=== PATIENT | female | born 1960 | race Caucasian/White ===

== ENCOUNTER 2024-04-03 08:54 | Observation (INO) ==
--- NOTE | 2024-02-15 11:21 | PAT Medication Instructions ---
Medication Instructions Date of Service February 15, 2024 Home Medications albuterol sulfate 90 mcg/actuation aerosol inhaler 1 inh inhalation UD PRN ALLERGIES atorvastatin 20 mg tablet (Lipitor) 20 mg PO QPM clobetasol 0.05 % topical cream 1 applic topical UD PRN PSORIASIS diclofenac sodium 75 mg tablet,delayed release 75 mg PO BID famotidine 40 mg tablet 40 mg PO QPM furosemide 20 mg tablet 20 mg PO UD PRN LEG SWELLING loratadine 10 mg tablet (Claritin) 10 mg PO UD PRN ALLERGIES metformin 500 mg tablet 500 mg PO BID pre-diabetes potassium chloride 20 mEq tablet,extended release(part/cryst) (Klor-Con M) 20 meq PO QAM tramadol 50 mg tablet 50 mg PO UD PRN Pain triamterene 37.5 mg-hydrochlorothiazide 25 mg tablet 1 tab PO QAM cyanocobalamin (vitamin B-12) 1,000 mcg tablet (Vitamin B-12) 1,000 mcg PO QAM MEDICATION INSTRUCTIONS: Continue as directed albuterol sulfate 90 mcg/actuation aerosol inhaler 1 inh inhalation UD PRN ALLERGIES (use if needed; BRING TO HOSPITAL) clobetasol 0.05 % topical cream 1 applic topical UD PRN PSORIASIS (do not apply after bathing prior to surgery) ASK your surgeon for instructions diclofenac sodium 75 mg tablet,delayed release 75 mg PO BID DO NOT take the morning of surgery metformin 500 mg tablet 500 mg PO BID pre-diabetes triamterene 37.5 mg-hydrochlorothiazide 25 mg tablet 1 tab PO QAM potassium chloride 20 mEq tablet,extended release(part/cryst) (Klor-Con M) 20 meq PO QAM cyanocobalamin (vitamin B-12) 1,000 mcg tablet (Vitamin B-12) 1,000 mcg PO QAM Take morning of surgery With a small sip of water, OTHERWISE NOTHING TO EAT OR DRINK AFTER MIDNIGHT: tramadol 50 mg tablet 50 mg PO UD PRN Pain Take evening before surgery famotidine 40 mg tablet 40 mg PO QPM atorvastatin 20 mg tablet (Lipitor) 20 mg PO QPM metformin 500 mg tablet 500 mg PO BID pre-diabetes tramadol 50 mg tablet 50 mg PO UD PRN Pain Other Notes If you have any questions please call us at [phone] or [phone] or [phone] or [phone]
--- NOTE | 2024-02-28 11:03 | Anesthesiology Consultation ---
Date of Service February 28, 2024 Assessment & Plan (1) Encounter for pre-operative examination: Chart Review Chart Review: Acceptable Risk for Surgery and Patient seen in Pre Admission Testing - Check BSG AM DOS Pt currently scheduled as 23 hours observation. If surgeon decides to change patient to Same Day Joint, patient would be acceptable risk for TKA, pending patient is motivated, has good support and surgeon's office completes [facility] Program preop requirements. Per PAT appt on 02/28/24, no recent illness/disease exposures, illness related symptoms, or recent illness/disease positive tests. Will leave to surgeon's discretion if preop Covid testing needed Teaching & Discussion Pre-Anesthesia Teaching/Discussion Notes: Instructed NPO after midnight before surgery,except medications with 15 cc of water. Medication instructions provided according to the PAT guidelines. History Surgery Operation Date: 04/03/24 08:40 Proposed Procedures p Left Total Knee Arthroplasty - Pj Uribe, Height/Weight Height: 5 ft 5 in Weight: 117.1 kg Allergies Allergy/AdvReac Type Severity Reaction Status Date / Time No Known Drug Allergies Allergy Unknown NKDA Verified 02/15/24 08:09 pollen extracts Allergy Unknown WATERY Verified 02/15/24 08:09 EYES;SNEEZING Medications Home Medications Medication Instructions Recorded Confirmed Last Taken albuterol sulfate 90 mcg/actuation 1 inh inhalation UD PRN ALLERGIES 09/01/22 02/15/24 Unknown aerosol inhaler atorvastatin 20 mg tablet (Lipitor) 20 mg PO QPM 09/01/22 02/15/24 09/09/22 08:00 clobetasol 0.05 % topical cream 1 applic topical UD PRN PSORIASIS 09/01/22 1 Unknown diclofenac sodium 75 mg 75 mg PO BID 09/01/22 02/15/24 09/09/22 08:00 tablet,delayed release famotidine 40 mg tablet 40 mg PO QPM 09/01/22 02/15/24 09/09/22 08:00 furosemide 20 mg tablet 20 mg PO UD PRN LEG SWELLING 09/01/22 02/15/24 09/03/22 08:00 loratadine 10 mg tablet (Claritin) 10 mg PO UD PRN ALLERGIES 09/01/22 02/15/24 09/09/22 08:00 metformin 500 mg tablet 500 mg PO BID pre-diabetes 09/01/22 02/15/24 09/09/22 08:00 potassium chloride 20 mEq 20 meq PO QAM 09/01/22 02/15/24 09/09/22 08:00 tablet,extended release(part/cryst) (Klor-Con M) tramadol 50 mg tablet 50 mg PO UD PRN Pain 09/01/22 02/15/24 09/03/22 08:00 triamterene 37.5 1 tab PO QAM 09/01/22 02/15/24 09/09/22 08:00 mg-hydrochlorothiazide 25 mg tablet cyanocobalamin (vitamin B-12) 1,000 mcg PO QAM 02/15/24 02/15/24 Unknown 1,000 mcg tablet (Vitamin B-12) Past Medical History Medical History (Updated 02/28/24 @ 11:15 by Leilani Garber PA-C) Acid reflux well controlled and stable Arthritis High cholesterol HTN (hypertension) Numbness and tingling in both hands bilateral fingers- on Vit 12; patient feels neuropathy due to prediabetes Peripheral neuropathy bilateral feet Pre-diabetes Psoriasis Seasonal allergies Exercise / Class Metabolic Activity II 4-5 Yardwork/Stairs/Walk up hill (one flight of stairs- no chest pain or SOB ) Past Family History Family History Mother Leukemia Father Heart disease Brother Family history of cancer Other Family history of diabetes mellitus No family history of adverse response to anesthesia Past Surgical History Surgical History History of colonoscopy History of lumbar spinal fusion (2013) Dr Sebastian (unsure of levels) History of thoracic spinal fusion (2009) unsure of levels History of total right knee replacement (2014) Past Anesthesia History No Hx of Anesthesia Complications and No Family Hx of Anesthesia Complications History of PONV No Hx of PONV and No Hx of Motion Sickness Social History Smoking Status: Never smoker Do You Dip or Chew Tobacco: No Hx Alcohol Use: Yes Alcohol type: other alcohol intake frequency: holidays/special occasions only Hx Substance Use: No substance use type: does not use Review of Systems Patient denies chest pain, shortness of breath, dyspnea on exertion, cough, w heezing, palpitations. No hx of seizures, stroke, SC, apnea/snoring. No hx of blood clots or blood transfusions Physical Exam Vital Signs VITALS BP 147/71 P 67 TEMP 97.8 SP02 94% RESP 16 Constitutional no acute distress ENMT Mouth: no TMJ clicking Thyromental Distance: > or= 3.5 Finger Breadths (3.5) Mallampati Class: III Upper partial denture Neck neck extension not limited Respiratory normal respiratory effort; no respiratory distress Auscultation: lungs clear to auscultation bilaterally; no wheezes Cardiovascular Rate/Rhythm: regular rate and regular rhythm Heart Sounds: no murmur Vessels: no carotid bruit Musculoskeletal Spine: no pain with cervical ROM Extremities: extremities normal to inspection Psychiatric Orientation: alert Lab Results Anesthesia Preop Results Results Anesthesia Widget: WBC 5.79 K/ul (4.8-10.8) 02/28/24 Hgb 12.6 g/dl (12.0-16.0) 02/28/24 Hct 37.2 % (37.0-47.0) 02/28/24 Plt 241 K/uL (130-400) 02/28/24 Na 139 mmol/L (136-145) 02/28/24 K 3.6 mmol/L (3.5-5.1) 02/28/24 Cl 104 mmol/L (98-107) 02/28/24 CO2 28 mmol/L (21-32) 02/28/24 BUN 27 mg/dl (6-23) H 02/28/24 Creat 0.87 mg/dl (0.6-1.2) 02/28/24 Glucose Level 96 mg/dl (70-99(Fasting)) 02/28/24 PT 10.4 Seconds (9.0-12.0) 02/28/24 PTT 26 Seconds (21-31) 02/28/24 INR 1.0 (0.9-1.1) 02/28/24 HA1c 5.7 % (4.5-5.6) H 02/28/24 Blood Type B Positive 02/28/24 Antibody Screen NEGATIVE 02/28/24 Testing Electrocardiogram Date: 02/28/24 Findings: + NSR @ (67bpm) Normal EKG per cardio Chest X-Ray Date: 02/28/24 FINDINGS: Lung volumes are normal. Lungs are clear. There is no pneumothorax or pleural effusion. Cardiac size is normal. Mediastinal contours are normal. There is no evidence for pulmonary edema. IMPRESSION: No acute cardiopulmonary findings.
--- NOTE | 2024-03-30 07:55 | History & Physical Report ---
Date of Service March 30, 2024 Assessment & Plan (1) Osteoarthritis of left knee: We will proceed with a left total knee arthroplasty. Postoperatively she will be started on aspirin for DVT prophylaxis and kept overnight in the hospital for postop medical management. She plans to go to home health in [place] upon discharge. History of Present Illness Chief Complaint: Osteoarthritis of the left knee. Primary Care Provider: Dorita Erazo MD Nikita is a [id number] female who I did a right partial knee replacement on about 10 years ago. She has done well with that. Unfortunately, she isdealing with severe left knee pain. Her left knee has completely collapsed into varus. It hasbeen bothering her for the last four years. She was not able to get much treatment during COV. It isto the point now where she wants to be a little bit more active. She isvery limited with her left knee. After failing conservative treatment, she has elected proceed with a left total knee arthroplasty. Allergies Allergy/AdvReac Type Severity Reaction Status Date / Time No Known Drug Allergies Allergy Unknown NKDA Verified 02/15/24 08:09 pollen extracts Allergy Unknown WATERY Verified 02/15/24 08:09 EYES;SNEEZING Home Medications Medication Instructions Recorded Confirmed Type albuterol sulfate 90 mcg/actuation 1 inh inhalation UD PRN ALLERGIES 09/01/22 02/15/24 History aerosol inhaler atorvastatin 20 mg tablet (Lipitor) 20 mg PO QPM 09/01/22 02/15/24 History clobetasol 0.05 % topical cream 1 applic topical UD PRN PSORIASIS 09/01/22 02/15/24 History diclofenac sodium 75 mg 75 mg PO BID 09/01/22 02/15/24 History tablet,delayed release famotidine 40 mg tablet 40 mg PO QPM 09/01/22 02/15/24 History furosemide 20 mg tablet 20 mg PO UD PRN LEG SWELLING 09/01/22 02/15/24 History loratadine 10 mg tablet (Claritin) 10 mg PO UD PRN ALLERGIES 09/01/22 02/15/24 History metformin 500 mg tablet 500 mg PO BID pre-diabetes 09/01/22 02/15/24 History potassium chloride 20 mEq 20 meq PO QAM 09/01/22 02/15/24 History tablet,extended release(part/cryst) (Klor-Con M) tramadol 50 mg tablet 50 mg PO UD PRN Pain 09/01/22 02/15/24 History triamterene 37.5 1 tab PO QAM 09/01/22 02/15/24 History mg-hydrochlorothiazide 25 mg tablet cyanocobalamin (vitamin B-12) 1,000 mcg PO QAM 02/15/24 02/15/24 History 1,000 mcg tablet (Vitamin B-12) Past Med/Surg History Problem List Osteoarthritis of left knee Encounter for pre-operative examination Spinal stenosis, lumbar region, with neurogenic claudication (Acute 08/28/13) Right knee DJD (Acute) Lumbar spondylosis with myelopathy (Acute 08/28/13) HTN (hypertension) (Acute 08/28/13) HNP (herniated nucleus pulposus), lumbar (Acute 08/28/13) Medical History Psoriasis Peripheral neuropathy bilateral feet Numbness and tingling in both hands bilateral fingers- on Vit 12; patient feels neuropathy due to prediabetes Seasonal allergies Acid reflux well controlled and stable Pre-diabetes High cholesterol Arthritis HTN (hypertension) Surgical History History of thoracic spinal fusion (2008) unsure of levels History of lumbar spinal fusion (2013) Dr Sebastian (unsure of levels) History of total right knee replacement (2014) History of colonoscopy Family History Mother Leukemia Father Heart disease Brother Family history of cancer Other Family history of diabetes mellitus No family history of adverse response to anesthesia Social History Smoking Status: Never smoker Second Hand Exposure: No; Do You Dip or Chew Tobacco: No; Hx Alcohol Use: Yes Alcohol type: other Hx Substance Use: No Preferred Language: French Communication Ability: Effective Radio Journalist Required: No Beliefs That Will Affect Care: None Current Living Situation: Spouse Feels Safe at Home: Yes Assistive Devices: Glasses and Other Review of Systems All systems reviewed & are unremarkable except as noted in HPI & below. Physical Exam On physical exam of the left knee, she has a severe varus deformity. She has tenderness palpation of the distal medial femoral condyles and over the medial joint lines.. Constitutional WD/WN, vitals as above Eyes PERRL, conjunctivae normal, anicteric sclerae ENMT external ear and nose normal, oropharynx normal Neck trachea midline, no thyromegaly Respiratory normal respiratory effort Cardiovascular RRR, no murmur, no edema Gastrointestinal (Abdomen) normal bowel sounds, soft, nontender, no hepatosplenomegaly Psychiatric A+Ox3, euthymic affect Results & Data Results & Data Laboratory Results . Diagnostic Findings X-rays of the left knee show severe osteoarthritis with joint space narrowing, osteophyte formation, and [id number] articulation. PG Care Time/CCT Total # of Minutes Spent Total Time Spent with Patient: Total time spent is greater than 50% in coordination of care (as documented) at patient's floor/unit and/or counseling patient: Coding Level of Care Code None Diagnoses Osteoarthritis of left knee M17.12
[~2024-04-03 08:54] MED LIST: BUPIVACAINE 0.25% PF 30 ML VIAL ONE; BUPIVACAINE 0.5 % 5 MG/1 ML PF 10ML VIAL ONE
--- NOTE | 2024-04-03 09:10 | History & Physical Bridge Note ---
Date of Service April 03, 2024 History & Physical Bridge Note I have examined the patient, reviewed the History & Physical and in the interval since the performance of the History & Physical I have noted the following changes of clinical significance: no changes noted
[2024-04-03] MEDS: GABAPENTIN 300 MG CAP PO SCH (09:48)
[2024-04-03] MEDS: ACETAMINOPHEN 500 MG TAB PO SCH (09:48)
[2024-04-03] MEDS: FAMOTIDINE 20 MG TAB PO SCH (09:48)
[2024-04-03] MEDS: dexAMETHasone**PF** 10 MG/ML VIAL IV SCH (09:48)
[2024-04-03] MEDS: LR 500ML BOLUS, THEN 15ML/HR IV SCH (09:49)
[2024-04-03] MEDS: LR 60ML/HR IV SCH (09:49)
[2024-04-03] MEDS ORDERED: MIDAZOLAM HCL 1 MG/ML 2ML VIAL ONE (10:42)
[2024-04-03] MEDS ORDERED: fentaNYL citrate PF 100 MCG/2 ML VIAL IV PRN (10:44)
[2024-04-03] MEDS ORDERED: ePHEDrine sulfate 50 MG/ML AMP IV PRN (10:44)
[2024-04-03] MEDS ORDERED: PROMETHAZINE HCL 6.25 MG in SODIUM CHLORIDE 0.9% 50 ML IV PRN (10:44)
[2024-04-03] MEDS ORDERED: ATROPINE SULFATE 0.1 MG/ML 10ML SYR IV PRN (10:44)
[2024-04-03] MEDS ORDERED: ONDANSETRON INJ 2 MG/ML 2 ML VIAL IV PRN ×2 (10:44→16:05)
--- OUTSIDE RECORDS SUMMARY | 2024-04-03 11:21 | External Medical Summary | Summary of Care ---
Author Name Unknown Organization [facility] Address [address] [place] [address] Phone [phone] Care Team Providers Care T[employer] Cord Weaver Name Role Phone Dorita Erazo MD Primary Care Provide r Reason for Visit * Reason Onset Date Comments Order Request 03/23/2024 Encounter Details Date Type Department Care Team (Late st Contact Info) Description 03/23/2024 Telephone Family Medicine [address] [phone] Dorita Erazo MD [address] [place] [id number] Order Request Allergies Active Allergy Reactions Criticality Noted Date Comments No Known Drug Allergy 02/05/2001 documented as of this encounter (statuses as of 03/29/2024) Medications ZOVIRAX 5 % EX CREAIndications:H erpes simplex virus infection APPLY TO LIP SORES 5 TIMES A DAY FOR 4 DAYS SOON SYPMPTOMS START 5 g 0 014 Active Loratadine 10 MG Oral Tablet Take 1 Tablet by mouth in the morning. Active Clobetasol Propionate 0.05 % External Ointment (Temovate)Indicat ions:Plaque psoriasis APPLY 2X DAILY (OR MORE IF ITCHY INSTEAD OF SCRATCHING) TO AREAS ON TOPS OF HANDS & ELBOWS (USE PLASTIC WRAP TO THIN OUT SPOTS AT NIGHT) 60 g 022 Active Klor-Con M20 20 MEQ Oral Tablet Extended Release (Potassium Chloride ER)Indications:Hy popotassemia TAKE 1 TABLET BY MOUTH EVERY DAY 90 Tablet 1 023 Active Albuterol Sulfate HFA 108 (90 Base) MCG/ACT Inhalation Aerosol Solution INHALE 2 PUFFS BY MOUTH EVERY 4 HOURS NEEDED FOR WHEEZING 18 g 5 023 Active Famotidine 40 MG Oral Tablet (Pepcid) TAKE 1 TABLET BY MOUTH EVERY DAY 90 Tablet 3 024 Active Triamterene-HCTZ 37.5-25 MG Oral Capsule (Dyazide)Indicati ons:Essential hypertension with goal blood pressure less than 140/90 TAKE 1 CAPSULE BY MOUTH EVERY DAY 90 Capsule 3 024 Active Atorvastatin Calcium 20 MG Oral Tablet (Lipitor)Indicati ons:Dyslipidemia, goal LDL below 130 TAKE 1 TABLET BY MOUTH EVERY DAY 90 Tablet 1 024 Active Diclofenac Sodium 75 MG Oral Tablet Delayed Release (Voltaren)Indicat ions:Generalized osteoarthritis TAKE 1 TABLET BY MOUTH IN THE MORNING AND 1 TABLET BEFORE BEDTIME WITH FOOD 180 Tablet 1 024 Active metFORMIN HCl 500 MG Oral Tablet (Glucophage)Indic ations:Prediabete s Take 1 Tablet by mouth 2 times a day with morning and evening meals. 500mg by mouth twice daily 180 Tablet 3 024 Active Furosemide 20 MG Oral Tablet (Lasix) TAKE 1 TABLET BY MOUTH EVERY DAY NEEDED (SWELLING). FOR FLUID ACCUMULATION OR WEIGHT GAIN. 90 Tablet 3 024 Active traMADol HCl 50 MG Oral Tablet (Ultram)Indicatio ns:Pain in limb Take 1 Tablet by mouth daily as needed for Pain, Severe. 30 Tablet 024 Active Gabapentin 100 MG Oral Capsule (Neurontin)Indica tions:Polyneuropa thy in other diseases classified elsewhere (HCC) Take 1 Capsule by mouth at bedtime. 90 Capsule 1 024 2023 Discontinued Hospital, Clinic, or Other Facility Administered Medication Ordered Dose Route Frequency Start Date End Date Status albuterol sulfate (PROVENTIL) (2.5 MG/3ML) 0.083% inhalation solution 2.5 mgIndications:Wheezing,SO B (shortness of breath) 2.5 mg NEBULIZER ONCE PRN 12/28/2017 A ctive documented as of this encounter (statuses as of 03/29/2024) Active Problems Problem Noted Date Diagnosed Date Plaque psoriasis 02/16/2022 Polyneuropathy in other diseases classified else where 08/21/2019 Controlled substance agreement signed 07/04/2018 Essential hypertension with goal blood pressure less than 140/90 10/30/2016 Dyslipidemia, goal LDL below 130 04/03/2016 Total knee replacement status 09/14/2014 Overview (02/28/2015): right Obesity, morbid (more than 1 00 lbs over ideal weight or BMI > 40) 08/13/2009 Overview (08/05/2015): Per Obesity Taxonomy ICD-10 update of inactive term LOC PRIM [id number] 07/20/2003 GENERAL OSTEOARTHROSIS documented as of this encounter (statuses as of 03/29/2024) Resolved Problems Problem Noted Date Diagnosed Date Resolved Date Prediabetes 09/09/2020 11/25/2023 Knee pain, bilateral 02/18/2012 015 HTN, goal below 140/90 01/10/201007/04 ADVANCE DIRECTIVE INFORMATION 08/17/2005 03/20/2024 Overview (08/17/2005): No, Advance Directive brochure given to patient at prior appointment. Morbid obesity, BMI not known 02/18/2004 08/13/2009 Overview (08/13/2009): Per Obesity Taxonomy DISACCHARIDASE DEF-MALAB 02/18/2004 CHONDROMALACIA PATELLAE 01/23/200302/14 Pain in limb 02/28/2015 Edema 12/21/2017 documented as of this encounter (statuses as of 03/29/2024) Immunizations Name Administration Dates Next Due COVID-19 mRNA, LNP-s, No Pre serve, 2-Dose Series (Moderna) 12/09/2020,11/11/2020 Seasonal Influenza Vac., MDV , IM, 0.5 mL (Fluzone) 03/14/2015,02/22/2014,02/13/2013,2010,06/06/2009,03/17/2006 Seasonal Influenza, PF, 6 M & above, IM , (FluLaval or Fluzone) 03/15/2023 Seasonal Influenza, Quadriva lent, No Preserve, IM 02/16/2020,02/13/2019,02/14/2018,2016,04/03/2016 TDAP, Age 7 and older, IM (Adacel) 12/20/2007 Zoster Vaccine Recombinant (Shingrix) 11/20/2019 ,06/04/2019 documented as of this encounter Social History Tobacco Use Types Packs/Day Years Used Date Smoking Tobacco: Never Smokeless Tobacco: Never Alcohol Use Standard Drinks/Week Comments No 0 (1 standard drink = 0.6 oz pur e alcohol) PHQ-2 Answer Date Recorded PHQ-2 Score -1 01/26/2019 Hunger Vital Sign Answer Date Recorded Worried About Running Out of Food in the Last Ye ar Never true 01/26/2019 Ran Out of Food in the Last Year Never true 01/26/2019 Comments No Sex and Gender Information Value Date Recorded Sex Assigned at Not on file Legal Sex Female 5:56 AM EST Gender Identity Not on file Sexual Orientation Not on file 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 * Telephone Encounter - Jeanette Lim RN - 03/23/2024 2:24 PM EST Pt is not diabetic and had labs done in November. Can discuss further at appt next week * Telephone Encounter - Avelina Montero OSA - 03/23/2024 10:21 AM EST An order was requested for this patient. Name of Requesting Provider: Bianca with [employer]are Order Requested: UACR Diagnosis/Reason for Request: diabetic test for kidney function,Insurance no record of Urina test being completed. What location AND department does the patient wish to have their order completed at? [facility] Fax Number, if applicable: If the caller is not a current patient, please advise the patient to call their current PCP to havethe order's prior to being seen in our office. The patient was informed that our providers would not order anything (medication, labs, etc.) prior to being seen. Please call Bianca back @ [employer] so she can document that the order has been placed. Bianca is asking also to call patient to let her know order has been placed. documented in this encounter Plan of Treatment Upcoming Encounters Date Type Department Care Team (Late st Contact Info) Description 08/22/2024 9:00 AM EDT Imaging Radiology [address] [place] [address] 12/04/2024 11:00 AM EDT Office Visit Family Medicine [address] [place] [phone] Dorita Erazo MD [address] [place] [address] [place] [id number] Scheduled Procedures Name Priority Associated Diagnoses Date/Ti me COLONOSCOPY FLEXIBLE PROXIMA L DIAGNOSTIC Recall Personal history of colonic polyps Health Maintenance Due Date Last Done Comments HIV Screening 1973 Hepatitis C Screening 1976 Cologuard 12/08/2003 Fecal Occult Blood Test 12/08/2003 Sigmoidoscopy 12/08/2003 DTap/Tdap Vaccines (2 - Td or Tdap) 12/19/2017 12/20/2007 Depression Screening 01/27/2020 01/26/2019 DXA Scan 12/08/2023 Pneumococcal Vaccine: 65+ Years (1 of 1 - PCV) 12/08/2023 COVID-19 Vaccine (3 - 2023- season) 2024 12/09/2020, 11/11/2020 Influenza Vaccine (FLU shot) (#1) 2024 03/15/2023, 02/16/2020, 02/13/2019, Additional history exists *NEPHROLOGY REFERRAL DUE TO RESISTANT HTN 03/29/2024 Mammogram 08/17/2024 08/18/2023, 07/16, 08/04/2021, Additional history exists GFR 03/27/2025 03/27/2024, 09/2023, 03/15/2023, Additional history exists Albumin/Creatinine Ratio 07/31/2025 07/31/2022, 07/16 Diabetes Screening 03/27/2027 03/27/2024, 0 11/19/2023, 11/19/2023, Additional history exists Colonoscopy 09/11/2027 09/10/2022, 06/2014, 03/18/2015, Additional history exists Colorectal Cancer Screening 09/11/2027 Lipid Panel 11/18/2028 11/19/2023, 02/16, 07/31/2022, Additional history exists Zoster Vaccines Completed 11/20/2019, 06/04/2019 Cervical Cancer Screening Discontinued HPV/Co-Test Discontinued 08/17/2022 Pap Smear Discontinued 08/17/2022, 06/17, 06/29/2016, Additional history exists RETIRED - COLONOSCOPY-EVERY 5 YRS AGES 18-100 Discontinued 09/10/2022, 03/18/2015, 03/18/2015, Additional history exists HPV (Gardasil) Vaccine Aged Out No lo nger eligible based on patient's age to complete this topic Hepatitis B Vaccine Aged Out No longe r eligible based on patient's age to complete this topic MENINGOCOCCAL (MENACTRA/MENVEO) Aged Out No longer eligible based on patient's age to complete this topic documented as of this encounter Medical Devices Not on filedocumented as of this encounter Care Teams T[employer] Cord Weaver Relationship Specialty Start Date End Date Dorita Erazo MD [address] [place] [address] [place] [id number] PCP - General Family Medicine 07/07/17 documented as of this encounter
--- OUTSIDE RECORDS SUMMARY | 2024-04-03 11:21 | External Medical Summary ---
Author Name Unknown Address Unknown Organization [id number]:[facility] [place] - [address] [place] [address] Laboratory Report Ordering Provider Test Date Status SHYANNE BAZZI 03/27/2024 11:38:37 Final Observation Date Value Abnormality Reference (Units ) Status Vitamin B12 03/27/2024 11:38:37 >2000 Above high normal [id number] (pg/mL) Final Performing Location [facility] [place] - [address] [place] [address]
--- OUTSIDE RECORDS SUMMARY | 2024-04-03 11:21 | External Medical Summary | Summary of Care ---
Author Name Unknown Organization [facility] Address [address] [place] [address] Phone [phone] Care Team Providers Care Manager Decision Support Name Role Phone Dorita Erazo MD Primary Care Provide r Reason for Visit * Reason Comments Outpatient Testing Encounter Details Date Type Department Care Team (Late st Contact Info) Description 03/27/2024 11:40 AM EST Laboratory Laboratory [address] [place] [phone] [facility] [address] [place] [address] Polyneuropathy in other diseases classified elsewhere (HCC) Allergies Active Allergy Reactions Criticality Noted Date Comments No Known Drug Allergy 02/05/2001 documented as of this encounter (statuses as of 03/27/2024) Medications ZOVIRAX 5 % EX CREAIndications:He rpes simplex virus infection APPLY TO LIP SORES 5 TIMES A DAY FOR 4 DAYS SOON SYPMPTOMS START 5 g 0 01/26/20 14 Active Loratadine 10 MG Oral Tablet Take 1 Tablet by mouth in the morning. Active Clobetasol Propionate 0.05 % External Ointment (Temovate)Indicati ons:Plaque psoriasis APPLY 2X DAILY (OR MORE IF ITCHY INSTEAD OF SCRATCHING) TO AREAS ON TOPS OF HANDS & ELBOWS (USE PLASTIC WRAP TO THIN OUT SPOTS AT NIGHT) 60 g 04/13/20 22 Active Klor-Con M20 20 MEQ Oral Tablet Extended Release (Potassium Chloride ER)Indications:Hyp opotassemia TAKE 1 TABLET BY MOUTH EVERY DAY 90 Tablet 1 02/18/20 23 Active Albuterol Sulfate HFA 108 (90 Base) MCG/ACT Inhalation Aerosol Solution INHALE 2 PUFFS BY MOUTH EVERY 4 HOURS NEEDED FOR WHEEZING 18 g 5 04/19/20 23 Active Famotidine 40 MG Oral Tablet (Pepcid) TAKE 1 TABLET BY MOUTH EVERY DAY 90 Tablet 3 08/23/19 24 Active Triamterene-HCTZ 37.5-25 MG Oral Capsule (Dyazide)Indicatio ns:Essential hypertension with goal blood pressure less than 140/90 TAKE 1 CAPSULE BY MOUTH EVERY DAY 90 Capsule 3 08/23/19 24 Active Atorvastatin Calcium 20 MG Oral Tablet (Lipitor)Indicatio ns:Dyslipidemia, goal LDL below 130 TAKE 1 TABLET BY MOUTH EVERY DAY 90 Tablet 1 12/16/19 24 Active Diclofenac Sodium 75 MG Oral Tablet Delayed Release (Voltaren)Indicati ons:Generalized osteoarthritis TAKE 1 TABLET BY MOUTH IN THE MORNING AND 1 TABLET BEFORE BEDTIME WITH FOOD 180 Tablet 1 01/29/20 24 Active metFORMIN HCl 500 MG Oral Tablet (Glucophage)Indica tions:Prediabetes Take 1 Tablet by mouth 2 times a day with morning and evening meals. 500mg by mouth twice daily 180 Tablet 3 03/07/20 24 Active Furosemide 20 MG Oral Tablet (Lasix) TAKE 1 TABLET BY MOUTH EVERY DAY NEEDED (SWELLING). FOR FLUID ACCUMULATION OR WEIGHT GAIN. 90 Tablet 3 03/14/20 24 Active traMADol HCl 50 MG Oral Tablet (Ultram)Indication s:Pain in limb Take 1 Tablet by mouth daily as needed for Pain, Severe. 30 Tablet 03/20/20 24 Active B-12 500 MCG Oral Tablet Take 1,000 mcg by mouth. Active Gabapentin 100 MG Oral Capsule (Neurontin)Indicat ions:Polyneuropath y in other diseases classified elsewhere (HCC) Take 1 Capsule by mouth in the morning and 1 Capsule at noon and 1 Capsule before bedtime. 270 Capsule 1 03/27/20 24 Active Hospital, Clinic, or Other Facility Administered Medication Ordered Dose Route Frequency Start Date End Date Status albuterol sulfate (PROVENTIL) (2.5 MG/3ML) 0.083% inhalation solution 2.5 mgIndications:Wheezing,SO B (shortness of breath) 2.5 mg NEBULIZER ONCE PRN 12/28/2017 A ctive documented as of this encounter (statuses as of 03/27/2024) Active Problems Problem Noted Date Diagnosed Date [...] ICD-10 update of inactive term LOC PRIM [id number] 07/20/2003 GENERAL OSTEOARTHROSIS documented as of this encounter (statuses as of 03/27/2024) Resolved Problems Problem Noted Date Diagnosed Date [...] as of this encounter (statuses as of 03/27/2024) Immunizations Name Administration Dates Next Due COVID-19 [...] 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 Not on file rian Not on file Not on file Not on file documented as of this encounter Plan of Treatment Upcoming Encounters Date Type Department Care Team (Late st Contact Info) Description 08/22/2024 9:00 AM EDT Imaging Radiology [address] [place] [address] 12/04/2024 11:00 AM EDT Office Visit Family Medicine [address] [place] [phone] Dorita Erazo MD [address] [place] [address] [place] [address] Pending Results Name Type Priority Associated Diagnoses Date /Time CBC WITH WBC DIFFERENTIAL AND ANEMIA REFLEX WORKUP Lab Routine Polyneuropathy in other diseases classified elsewhere (HCC) 03/27/2024 11:38 AM EST BASIC METABOLIC PANEL Lab Routine Polyneuropathy in other diseases classified elsewhere ([facility]) 03/27/2024 11:38 AM EST VITAMIN B12 Lab Routine Polyneuropathy in other diseases classified elsewhere ([facility]) 03/27/2024 11:38 AM EST ANEMIA CBC Lab Routine Polyneuropathy in other diseases classified elsewhere ([facility]) 03/27/2024 11:38 AM EST DIFFERENTIAL, AUTOMATED Lab Routine Polyneuropathy in other diseases classified elsewhere ([facility]) 03/27/2024 11:38 AM EST ANEMIA REFLEX CHEMISTRY HOLD Lab Routine Polyneuropathy in other diseases classified elsewhere ([facility]) 03/27/2024 11:38 AM EST Scheduled Procedures Name Priority Associated Diagnoses Date/Ti [...] 2024 03/15/2023, 02/16/2020, 02/13/2019, Additional history exists Mammogram 08/17/2024 08/18/2023, 07/16, 08/04/2021, Additional history exists GFR 11/18/2024 11/19/2023, 02/16, 07/31/2022, Additional history exists Albumin/Creatinine Ratio 07/31/2025 07/31/2022, 07/16 Diabetes Screening 11/18/2026 11/19/2023, 0 11/19/2023, 03/15/2023, Additional history exists Colonoscopy 09/11/2027 09/10/2022, 1106/2014, 03/18/2015, Additional history exists Colorectal Cancer Screening [...] Not on filedocumented as of this encounter Visit Diagnoses Diagnosis Polyneuropathy in other diseases classified elsewhere (HCC) Polyneuropathy in other diseases classified elsewhere documented in this encounter Care Teams Manager Decision Support Relationship Specialty Start Date End Date Dorita Erazo MD [address] [place] [address] [place] [phone] PCP - General Family Medicine 07/07/17 documented as of this encounter
--- OUTSIDE RECORDS SUMMARY | 2024-04-03 11:21 | External Medical Summary | Summary of Care ---
Author Name Unknown Organization [facility] Address [address] [place] [address] Phone [phone] Care Team Providers Care Travel Guide Name Role Phone Dorita Erazo MD Primary Care Provide r Reason for Visit * Reason Comments Follow Up 1 month. Encounter Details Date Type Department Care Team (Latest Contact Info) Description 03/27/2024 11:00 AM EST Office Visit Family Medicine [address] [phone] Sep[address]h Rodríguez[address] [phone] Polyneuropathy in other diseases classified elsewhere (HCC)* Allergies Active Allergy Reactions Criticality Noted Date Comments No Known Drug Allergy 02/05/2001 documented as of this encounter (statuses as of 03/27/2024) Medications ZOVIRAX 5 % EX CREAIndications:H erpes [...] for Pain, Severe. 30 Tablet 024 Active B-12 500 MCG Oral Tablet Take 1,000 mcg by mouth. Active Gabapentin 100 MG Oral Capsule (Neurontin)Indica tions:Polyneuropa thy in other diseases classified elsewhere (HCC) Take 1 Capsule by mouth in the morning and 1 Capsule at noon and 1 Capsule before bedtime. 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 file rian Not on file Not on file Not on file documented as of this encounter Last Filed Vital Signs Vital Sign Reading Time Taken Comments Blood Pressure 142/72 03/27/2024 11:10 AM EST Pulse 58 03/27/2024 11:10 AM EST Temperature - - Respiratory Rate - - Oxygen Saturation 98% 03/27/2024 11:10 AM EST Inhaled Oxygen Concentration - - Weight - - Height - - Body Mass Index - - documented in this encounter Plan of Treatment Upcoming Encounters Date Type Department Care Team (Late st Contact Info) Description 08/22/2024 9:00 AM EDT Imaging Radiology [address] [place] [address] 12/04/2024 11:00 AM EDT Office Visit Family Medicine [address] [place] [phone] Dorita Erazo MD [address] [place] [address] [place] [address] Pending Results Name Type Priority Associated Diagnoses Date /Time CBC WITH WBC DIFFERENTIAL AND ANEMIA REFLEX WORKUP Lab Routine Polyneuropathy in other diseases classified elsewhere ([facility]) 03/27/2024 11:38 AM EST BASIC METABOLIC PANEL Lab Routine Polyneuropathy in other diseases classified elsewhere ([facility]) 03/27/2024 11:38 AM EST VITAMIN B12 Lab Routine Polyneuropathy in other diseases classified elsewhere ([facility]) 03/27/2024 11:38 AM EST Scheduled Orders Name Type Priority Associated Diagnoses Orde r Schedule CBC WITH WBC DIFFERENTIAL AND ANEMIA REFLEX WORKUP Lab Routine Polyneuropathy in other diseases classified elsewhere ([facility]) Expected: 03/27/2024 (Approximate), Expires: 03/27/2025 BASIC METABOLIC PANEL Lab Routine Polyneuropathy in other diseases classified elsewhere ([facility]) Expected: 03/27/2024 (Approximate), Expires: 03/27/2025 VITAMIN B12 Lab Routine Polyneuropathy in other diseases classified elsewhere ([facility]) Expected: 03/27/2024 (Approximate), Expires: 03/27/2025 Scheduled Procedures Name Priority Associated Diagnoses Date/Ti [...] 03/15/2023, Additional history exists Colonoscopy 09/11/2027 09/10/2022, 06/2014, [...] Diagnosis Polyneuropathy in other diseases classified elsewhere (HCC)- Primary Polyneuropathy in other diseases classified elsewhere documented in this encounter Care Teams Travel Guide Relationship Specialty Start Date End Date Dorita Erazo MD [address] [place] [address] PCP - General Family Medicine 07/07/17 documented as of this encounter
--- OUTSIDE RECORDS SUMMARY | 2024-04-03 11:21 | External Medical Summary | Summary of Care ---
Author Name Unknown Organization [facility] Address [address] [place] [address] Phone [phone] Care Team Providers Care Hat Blocking Operator Name Role Phone Dorita Erazo MD Primary Care Provide r Reason for Visit * Reason Onset Date Comments Order Request 03/23/2024 Encounter Details Date Type Department Care Team (Late st Contact Info) Description 03/23/2024 Telephone Family Medicine [address] [phone] Dorita Erazo MD [address] [place] [id number] Order Request Allergies Active Allergy Reactions Criticality Noted Date Comments No Known Drug Allergy 02/05/2001 documented as of this encounter (statuses as of 03/23/2024) Medications Medication Sig Dispensed Refills Start Date End Date Status ZOVIRAX 5 % EX CREAIndications:Herp es simplex virus infection APPLY TO LIP SORES 5 TIMES A DAY FOR 4 DAYS SOON SYPMPTOMS START 5 g 0 01/25/2014 Active Loratadine 10 MG Oral Tablet Take 1 Tablet by mouth in the morning. Active Clobetasol Propionate 0.05 % External Ointment (Temovate)Indication s:Plaque psoriasis APPLY 2X DAILY (OR MORE IF ITCHY INSTEAD OF SCRATCHING) TO AREAS ON TOPS OF HANDS & ELBOWS (USE PLASTIC WRAP TO THIN OUT SPOTS AT NIGHT) 60 g 04/13/2022 Active Klor-Con M20 20 MEQ Oral Tablet Extended Release (Potassium Chloride ER)Indications:Hypop otassemia TAKE 1 TABLET BY MOUTH EVERY DAY 90 Tablet 1 02/17/2023 Active Albuterol Sulfate HFA 108 (90 Base) MCG/ACT Inhalation Aerosol Solution INHALE 2 PUFFS BY MOUTH EVERY 4 HOURS NEEDED FOR WHEEZING 18 g 5 04/19/2023 Active Famotidine 40 MG Oral Tablet (Pepcid) TAKE 1 TABLET BY MOUTH EVERY DAY 90 Tablet 3 08/23/2023 Active Triamterene-HCTZ 37.5-25 MG Oral Capsule (Dyazide)Indications :Essential hypertension with goal blood pressure less than 140/90 TAKE 1 CAPSULE BY MOUTH EVERY DAY 90 Capsule 3 08/23/2023 Active Atorvastatin Calcium 20 MG Oral Tablet (Lipitor)Indications :Dyslipidemia, goal LDL below 130 TAKE 1 TABLET BY MOUTH EVERY DAY 90 Tablet 1 12/16/2023 Active Diclofenac Sodium 75 MG Oral Tablet Delayed Release (Voltaren)Indication s:Generalized osteoarthritis TAKE 1 TABLET BY MOUTH IN THE MORNING AND 1 TABLET BEFORE BEDTIME WITH FOOD 180 Tablet 1 01/29/2024 Active Gabapentin 100 MG Oral Capsule (Neurontin)Indicatio ns:Polyneuropathy in other diseases classified elsewhere (HCC) Take 1 Capsule by mouth at bedtime. 90 Capsule 1 02/29/2024 Active metFORMIN HCl 500 MG Oral Tablet (Glucophage)Indicati ons:Prediabetes Take 1 Tablet by mouth 2 times a day with morning and evening meals. 500mg by mouth twice daily 180 Tablet 3 03/07/2024 Active Furosemide 20 MG Oral Tablet (Lasix) TAKE 1 TABLET BY MOUTH EVERY DAY NEEDED (SWELLING). FOR FLUID ACCUMULATION OR WEIGHT GAIN. 90 Tablet 3 03/14/2024 Active traMADol HCl 50 MG Oral Tablet (Ultram)Indications: Pain in limb Take 1 Tablet by mouth daily as needed for Pain, Severe. 30 Tablet 03/20/2024 Active Hospital, Clinic, or Other Facility Administered Medication Ordered Dose Route Frequency Start Date End Date Status albuterol sulfate (PROVENTIL) (2.5 MG/3ML) 0.083% inhalation solution 2.5 mgIndications:Wheezing,SO B (shortness of breath) 2.5 mg NEBULIZER ONCE PRN 12/28/2017 A ctive documented as of this encounter (statuses as of 03/23/2024) Active Problems Problem Noted Date Diagnosed Date Plaque psoriasis 02/16/2022 Polyneuropathy in other diseases classified else where 08/21/2019 Controlled substance agreement signed 07/04/2018 Essential hypertension with goal blood pressure less than 140/90 10/30/2016 Dyslipidemia, goal LDL below 130 04/03/2016 Total knee replacement status 09/14/2014 Overview: right Obesity, morbid (more than 1 00 lbs over ideal weight or BMI > 40) 08/13/2009 Overview: Per Obesity Taxonomy ICD-10 update of inactive term LOC PRIM [id number] 07/20/2003 GENERAL OSTEOARTHROSIS documented as of this encounter (statuses as of 03/23/2024) Resolved Problems Problem Noted Date Diagnosed Date Resolved Date Prediabetes 09/09/2020 11/25/2023 Knee pain, bilateral 02/18/2012 015 HTN, goal below 140/90 01/10/201007/04 ADVANCE DIRECTIVE INFORMATION 08/17/2005 03/20/2024 Overview: No, Advance Directive brochure given to patient at prior appointment. Morbid obesity, BMI not known 02/18/2004 08/13/2009 Overview: Per Obesity Taxonomy DISACCHARIDASE DEF-MALAB 02/18/2004 CHONDROMALACIA PATELLAE 01/23/200302/14 Pain in limb 02/28/2015 Edema 12/21/2017 documented as of this encounter (statuses as of 03/23/2024) Immunizations Name Administration Dates Next Due COVID-19 [...] in the Last Year Never true 01/26/2019 Utilities Answer Date Recorded Do you have trouble paying y our heating, water, or electric bill? (Adult - for ages 18 years and over) Not on file 11/02/2023 Is your family able to pay t he heat, water, or electric bill? (Household - for ages 0-17 years) Not on file 11/02/2023 Does your family have access to good internet? (Household - for ages 0-17 years) Not on file 11/02/2023 Social Connections Answer Date Recorded How often do you feel lonely or isolated from those around you? (Adult - for ages 18 years and over) Not on file 11/02/2023 Sex and Gender Information Value Date Recorded Sex Assigned at Not on file Gender Identity Not on file Sexual Orientation Not on file Job Start Date Occupation Industry Not on file Not on file Not on file documented as of this encounter Miscellaneous Notes * Telephone Encounter - Jeanette Lim RN - 03/23/2024 2:24 PM EST Pt is not diabetic and had labs done in November. [facility] * Telephone Encounter - Avelina Montero OSA - 03/23/2024 10:21 AM EST An order was requested for this patient. Name of Requesting Provider: Bianca with [employer] Order Requested: UACR Diagnosis/Reason for Request: diabetic test for kidney function,Insurance no record of Urina test being completed. What location AND department does the patient wish to have their order completed at? [facility] Fax Number, if applicable: If the caller [...] Team (Late st Contact Info) Description 03/27/2024 11:00 AM EST Office Visit Family Medicine [address] [place] [phone] Sepideh Rodríguez CRNP [address] [place] [address] [place] [address] 08/22/2024 9:00 AM EDT Imaging Radiology [address] [place] [address] 12/04/2024 11:00 AM EDT Office Visit Family Medicine [address] [place] [phone] Dorita Erazo MD [address] [place] [address] [place] [id number] Scheduled Procedures Name Priority Associated Diagnoses Date/Ti [...] filedocumented as of this encounter Care Teams Hat Blocking Operator Relationship Specialty Start Date End Date Dorita Erazo MD [address] [place] [address] [place] [address] PCP - General Family Medicine 07/07/17 documented as of this encounter
--- OUTSIDE RECORDS SUMMARY | 2024-04-03 11:21 | External Medical Summary ---
Author Name Unknown Address Unknown Organization [id number]:LAB[facility]ATORY [facility] - [address] [place] [id number] Laboratory Report Ordering Provider Test Date Status SHYANNE BAZZI 03/27/2024 11:38:37 Final Observation Date Value Abnormality Reference (Units ) Status WBC, Total 03/27/2024 11:38:37 5.97 4.00-10.8 0 (K/uL) Final RBC 03/27/2024 11:38:37 4.43 3.85-5.15 (M/uL) Final Hemoglobin 03/27/2024 11:38:37 13.4 12.0-15.3 (g/dL) Final Anemia reflex testing trigge rs on a HGB < 12.0 for Females and HGB < 13.0 for Males in accordance with the WHO Anemia Guidelines
Anemia reflex testing triggers on a HGB < 12.0 for Females and HGB < 13.0 for Males in accordance with the WHO Anemia Guidelines HCT 03/27/2024 11:38:37 42.6 36.0-45.2 (%) Final MCV 03/27/2024 11:38:37 96.2 81.5-97.5 (fL) Final MCH 03/27/2024 11:38:37 30.2 27.0-34.0 (pg) Final MCHC 03/27/2024 11:38:37 31.5 32.0-36.0 (g/dL) Final RDW 03/27/2024 11:38:37 13.9 11.5-15.5 (%) Final Platelets 03/27/2024 11:38:37 261 140-400 (K /uL) Final MPV 03/27/2024 11:38:37 11.1 6.6-11.1 ( fL) Final Nucleated erythrocytes/100 leukocytes [Ratio] in Blood by Automated count 03/27/2024 11:38:37 0 <=0 (/100 WBCs) Fi nal Performing Location LABORATORY [facility] - [address] [facility] [address]
--- OUTSIDE RECORDS SUMMARY | 2024-04-03 11:21 | External Medical Summary ---
Author Name Unknown Address Unknown Organization [id number]:[facility] [place] [address] [facility] [address] Laboratory Report Ordering Provider Test Date Status SHYANNE BAZZI 03/27/2024 11:38:37 Final Observation Date Value Abnormality Reference (Units ) Status SYNC LEUKOCYTES IN BLOOD BY AUTOMATED COUNT 03/27/2024 11:38:37 5.97 4.00-10.80 (K/uL) Final Segs 03/27/2024 11:38:37 53.3 40.0-75.0 (%) Final Lymphs % 03/27/2024 11:38:37 34.7 18.0-42.0 (%) Final Monos 03/27/2024 11:38:37 8.5 1.0-11.0 (%) Final Eosinophils 03/27/2024 11:38:37 2.5 0.0-6.0 (%) Final Basos 03/27/2024 11:38:37 0.8 0.0-2.0 (%) Final Immature Granulocyte, Percent 03/27/2024 11:38:37 0.2 0.0-2.0 (%) Final Absolute Segs 03/27/2024 11:38:37 3.18 1.80-7.70 (K/uL) Final Lymphs, absolute 03/27/2024 11:38:37 2.07 1.00-4.80 (K/ul) Final Monos, Abs 03/27/2024 11:38:37 0.51 0.00-1.10 (K/uL) Final Eos, Abs 03/27/2024 11:38:37 0.15 0.00-0.70 (K/uL) Final Basos, Abs 03/27/2024 11:38:37 0.05 0.00-0.20 (K/uL) Final Immature Granulocytes, Number 03/27/2024 11:38:37 0.01 0.00-0.20 (K/uL) Final Performing Location [facility] - [facility] [address] [facility] [address]
--- OUTSIDE RECORDS SUMMARY | 2024-04-03 11:21 | External Medical Summary ---
Author Name Unknown Address Unknown Organization [id number]:[facility] [address] [facility] [address] [place] [address] Laboratory Report Ordering Provider Test Date Status SHYANNE BAZZI 03/27/2024 11:38:37 Final Observation Date Value Abnormality Reference (Units ) Status BUN 03/27/2024 11:38:37 21 Above high normal 6-20 (mg/dL) Final Creatinine 03/27/2024 11:38:37 0.9 0.5-1.0 (mg/dL) Final Glomerular filtration rate/1.73 sq M.predicted [Volume Rate/Area] in Serum, Plasma or Blood by Creatinine-based formula (CKD-EPI) 03/27/2024 11:38:37 73 >=60 (mL/min) Final eGFR is calculated based on the CKD-EPI 2020 equation. Sodium 03/27/2024 11:38:37 142 135-146 (m mol/L) Final Potassium 03/27/2024 11:38:37 4.0 3.5-5.1 (m mol/L) Final Cl 03/27/2024 11:38:37 101 98-107 (mm ol/L) Final CO2 03/27/2024 11:38:37 28 22-32 (mmo l/L) Final Anion gap 03/27/2024 11:38:37 13 7-15 (mmol /L) Final Glucose 03/27/2024 11:38:37 96 70-120 (mg /dL) Final Calcium 03/27/2024 11:38:37 10.1 8.4-10.2 ( mg/dL) Final Performing Location [facility] - [address] [place] [address]
--- OUTSIDE RECORDS SUMMARY | 2024-04-03 11:21 | External Medical Summary | Summary of Care ---
Author Name Unknown Organization [facility] Address [address] [place] [address] Phone [phone] Care Team Providers Care 3Rd Grade Reading Teacher Name Role Phone Daniel Erazo MD Primary Care Provide r Reason for Referral * Medication Prior Authorization - Pending Review Specialty Diagnoses / Procedures Referred By Contac t Referred To Contact Diagnoses Pain in limb Daniel Erazo MD [address] [place] [address] [place] [address] Referral ID Status Reason Start Date Expiration Date V isits Requested Visits Authorized [id number] Pending Review [id number] Reason for Visit * Reason Onset Date Comments Medication Refill 03/17/2024 Encounter Details Date Type Department Care Team (Late st Contact Info) Description 03/17/2024 Refill Family Medicine [address] [place] [phone] Daniel Erazo MD [address] [place] [address] [place] [phone] Pain in limb Allergies Active Allergy Reactions Criticality Noted Date Comments No Known Drug Allergy 02/05/2001 documented as of this encounter (statuses as of 03/20/2024) Medications Medication Sig Dispensed Refills Start Date End Date Status ZOVIRAX 5 % EX CREAIndications:Her pes simplex virus infection APPLY TO LIP SORES 5 TIMES A DAY FOR 4 DAYS SOON SYPMPTOMS START 5 g 0 01/25/2014 Active Loratadine 10 MG Oral Tablet Take 1 Tablet by mouth in the morning. Active Clobetasol Propionate 0.05 % External Ointment (Temovate)Indicatio ns:Plaque psoriasis APPLY 2X DAILY (OR MORE IF ITCHY INSTEAD OF SCRATCHING) TO AREAS ON TOPS OF HANDS & ELBOWS (USE PLASTIC WRAP TO THIN OUT SPOTS AT NIGHT) 60 g 04/13/2022 Active Klor-Con M20 20 MEQ Oral Tablet Extended Release (Potassium Chloride ER)Indications:Hypo potassemia TAKE 1 TABLET BY MOUTH EVERY DAY 90 Tablet 1 02/17/2023 Active Albuterol Sulfate HFA 108 (90 Base) MCG/ACT Inhalation Aerosol Solution INHALE 2 PUFFS BY MOUTH EVERY 4 HOURS NEEDED FOR WHEEZING 18 g 5 04/19/2023 Active Famotidine 40 MG Oral Tablet (Pepcid) TAKE 1 TABLET BY MOUTH EVERY DAY 90 Tablet 3 08/23/2023 Active Triamterene-HCTZ 37.5-25 MG Oral Capsule (Dyazide)Indication s:Essential hypertension with goal blood pressure less than 140/90 TAKE 1 CAPSULE BY MOUTH EVERY DAY 90 Capsule 3 08/23/2023 Active Atorvastatin Calcium 20 MG Oral Tablet (Lipitor)Indication s:Dyslipidemia, goal LDL below 130 TAKE 1 TABLET BY MOUTH EVERY DAY 90 Tablet 1 12/16/2023 Active Diclofenac Sodium 75 MG Oral Tablet Delayed Release (Voltaren)Indicatio ns:Generalized osteoarthritis TAKE 1 TABLET BY MOUTH IN THE MORNING AND 1 TABLET BEFORE BEDTIME WITH FOOD 180 Tablet 1 01/29/2024 Active Gabapentin 100 MG Oral Capsule (Neurontin)Indicati ons:Polyneuropathy in other diseases classified elsewhere (HCC) Take 1 Capsule by mouth at bedtime. 90 Capsule 1 02/29/2024 Active metFORMIN HCl 500 MG Oral Tablet (Glucophage)Indicat ions:Prediabetes Take 1 Tablet by mouth 2 times a day with morning and evening meals. 500mg by mouth twice daily 180 Tablet 3 03/07/2024 Active Furosemide 20 MG Oral Tablet (Lasix) TAKE 1 TABLET BY MOUTH EVERY DAY NEEDED (SWELLING). FOR FLUID ACCUMULATION OR WEIGHT GAIN. 90 Tablet 3 03/14/2024 Active traMADol HCl 50 MG Oral Tablet (Ultram)Indications :Pain in limb Take 1 Tablet by mouth daily as needed for Pain, Severe. 30 Tablet 03/20/2024 Active traMADol HCl 50 MG Oral Tablet (Ultram)Indications :Pain in limb TAKE 1 TABLET BY MOUTH DAILY NEEDED FOR PAIN, SEVERE. 30 Tablet 01/31/2024 03/17/20 24 Discontinu ed(Refill) Hospital, Clinic, or Other Facility Administered Medication Ordered Dose Route Frequency Start Date End Date Status albuterol sulfate (PROVENTIL) (2.5 MG/3ML) 0.083% inhalation solution 2.5 mgIndications:Wheezing,SO B (shortness of breath) 2.5 mg NEBULIZER ONCE PRN 12/28/2017 A ctive documented as of this encounter (statuses as of 03/20/2024) Active Problems Problem Noted Date Diagnosed Date [...] Obesity Taxonomy ICD-10 update of inactive term ADVANCE DIRECTIVE INFORMATION 08/17/2005 Overview: No, Advance Directive brochure given to patient at prior appointment. LOC PRIM [id number] 07/20/2003 GENERAL OSTEOARTHROSIS documented as of this encounter (statuses as of 03/20/2024) Resolved Problems Problem Noted Date Diagnosed Date Resolved Date Prediabetes 09/09/2020 11/25/2023 Knee pain, bilateral 02/18/2012 015 HTN, goal below 140/90 01/10/201007/04 Morbid obesity, BMI not known 02/18/2004 08/13/2009 Overview: Per Obesity Taxonomy DISACCHARIDASE DEF-MALAB 02/18/2004 CHONDROMALACIA PATELLAE 01/23/200302/14 Pain in limb 02/28/2015 Edema 12/21/2017 documented as of this encounter (statuses as of 03/20/2024) Immunizations Name Administration Dates Next Due COVID-19 [...] encounter Miscellaneous Notes * Telephone Encounter - Daniel Erazo MD - 03/20/2024 10:56 AM EST Signed Prescriptions: Disp Refills traMADol HCl 50 MG Oral Tablet (Ultram) 30 Tab*0 Sig: Take 1 Tablet by mouth daily as needed for Pain, Severe. Authorizing Provider: DANIEL ERAZO * Telephone Encounter - Dee Eddy [facility] - 03/17/2024 9:21 PM EDT Pending Prescriptions: Disp Refills traMADol HCl 50 MG Oral Tablet (Ultram) 30 Tab*0 Sig: Take 1 Tablet by mouth daily as needed for Pain, Severe. * Telephone Encounter - Dee Eddy [facility] - 03/17/2024 9:17 PM EDT I have reviewed the patients controlled substance dispensing history in the Prescription Drug Monitoring Program in compliance with the [facility] regulations before prescribing a controlled substance. PDMP checked on 03/17/2024. Pending Prescriptions: Disp Refills traMADol HCl 50 MG Oral Tablet (Ultram) 30 Tab*0 Sig: Take 1 Tablet by mouth daily as needed for Pain, Severe. Last Visit: 02/29/2024 (in office), Visit date not found (telemedicine) Next Visit: 03/27/2024 Date medication was last filled: 01/31/2024 Date medication is due for refill: 02/28 Pharmacy: [id number] [id number] [facility] Is this request for a controlled substance? Yes and Urine Drug Screen Not completed Toxicology results: Results for orders placed or performed in visit on 07/04/18 OPIOIDS/BENZO COMPLIANCE MONITORING W/INTERP Result Value COMPLIANCE INTERP (NOTE) URINE DRUG SCREEN RESULT Amphetamine NEGATIVE Barbiturates NEGATIVE Benzodiazepines NEGATIVE Cannabinoids NEGATIVE Cocaine Metabolite NEGATIVE METHADONE METABOLITE NEGATIVE Morphine / Codeine NEGATIVE OXYCODONE NEGATIVE COMMENT THE ABOVE SCREENING RESULTS ARE PRESUMPTIVE AND CAN ONLY BE USED FOR MEDICAL PURPOSES. CONFIRMATORY TESTING IS AVAILABLE UPON REQUEST. Cutoff Concentration URINE VALID INTERP NORMAL CREATININE BRUNO 55 Please approve if appropriate. Thank you, Dee Eddy PharmD Clinical Pharmacist [facility] 03/17/2024, 9:17 PM * Telephone Encounter - Sylvia Cesar PHARM Tech - 03/17/2024 8:04 AM EDT Did you pend patient's preferred pharmacy and medication before forwarding?yes Pharmacy: [id number] [id number] [facility] Pending Prescriptions: Disp Refills traMADol HCl 50 MG Oral Tablet (Ultram) 30 Tab*0 Sig: Take 1 Tablet by mouth daily as needed for Pain, Severe. Last Visit: 02/29/2024 (in office), Visit date not found (telemedicine) Next Visit: 03/27/2024 If no future appointments scheduled, and last appointment is greater than a year ago, please schedule patient for a follow-up appointment Last date the medication was ordered: 02/03/2024 Is this request for a controlled substance?Yes, What was the last refill date 01/31/2024 w/ quantity 30 and dosage 50MG and Urine Drug Screen was completed Urine Drug Screen: Results for orders placed or performed in visit on 07/04/18 OPIOIDS/BENZO COMPLIANCE MONITORING W/INTERP Result Value COMPLIANCE INTERP (NOTE) URINE DRUG SCREEN RESULT Amphetamine NEGATIVE Barbiturates NEGATIVE Benzodiazepines NEGATIVE Cannabinoids NEGATIVE Cocaine Metabolite NEGATIVE METHADONE METABOLITE NEGATIVE Morphine / Codeine NEGATIVE OXYCODONE NEGATIVE COMMENT THE ABOVE SCREENING RESULTS ARE PRESUMPTIVE AND CAN ONLY BE USED FOR MEDICAL PURPOSES. CONFIRMATORY TESTING IS AVAILABLE UPON REQUEST. Cutoff Concentration URINE VALID INTERP NORMAL CREATININE BRUNO 55 Patient Phone Numbers Labs: Lab Results Component Value Date/Time CREAT 1.1 (H) 11/19/2023 08:43 AM CREAT 0.9 02/26/2020 03:13 PM POTASSIUM 3.8 11/19/2023 08:43 AM POTASSIUM 3.7 02/26/2020 03:13 PM TSH 1.94 02/26/2020 03:13 PM LDL 110 11/19/2023 08:43 AM LDL 96 11/02/2019 01:48 PM LDL NOT APPLICABLE 11/02/2019 01:48 PM LDLCALC 165 (H) 09/05/2015 12:00 AM ALT 34 11/19/2023 08:43 AM ALT 43 (H) 11/02/2019 01:48 PM HGBA1C 5.5 11/19/2023 08:43 AM HGBA1C 5.9 (H) 02/26/2020 03:13 PM documented in this encounter Plan of Treatment Upcoming Encounters Date Type Department Care Team (Late st Contact Info) Description 03/27/2024 11:00 AM EST Office Visit Family Medicine [address] [phone] Sepideh Rodríguez CRNP [address] [place] [address] [place] [address] 08/22/2024 9:00 AM EDT Imaging Radiology [address] [place] [address] 12/04/2024 11:00 AM EDT Office Visit Family Medicine [address] [place] [phone] Daniel Erazo MD [address] [place] [address] [place] [address] Scheduled Procedures Name Priority Associated Diagnoses Date/Ti [...] as of this encounter Visit Diagnoses Diagnosis Pain in limb documented in this encounter Care Teams 3Rd Grade Reading Teacher Relationship Specialty Start Date End Date Daniel Erazo MD [address] [place], [place] [address] [address] PCP - General Family Medicine 07/07/17 documented as of this encounter
--- OUTSIDE RECORDS SUMMARY | 2024-04-03 11:22 | External Medical Summary | Summary of Care ---
Author Name Unknown Organization [facility] Address [address] [place] [address] Phone [phone] Care Team Providers Care Relations Coordinator Name Role Phone Dorita Erazo MD Primary Care Provide r Reason for Visit * Reason Comments Acute Encounter Details Date Type Department Care Team (Latest Contact Info) Description 02/29/2024 9:00 AM EDT Office Visit Family Medicine [address] [phone] Sepideh Rodríguez [address] [place] [address] Polyneuropathy in other diseases classified elsewhere (HCC)* Allergies Active Allergy Reactions Criticality Noted Date Comments No Known Drug Allergy 02/05/2001 documented as of this encounter (statuses as of 02/29/2024) Medications Medication Sig Dispensed Refills Start Date [...] FOR WHEEZING 18 g 5 04/19/2023 Active Furosemide 20 MG Oral Tablet (Lasix) TAKE 1 TABLET BY MOUTH EVERY DAY NEEDED (SWELLING). FOR FLUID ACCUMULATION OR WEIGHT GAIN. 90 Tablet 2 06/17/2023 Active Famotidine 40 MG Oral Tablet (Pepcid) [...] EVERY DAY 90 Tablet 1 12/16/2023 Active traMADol HCl 50 MG Oral Tablet (Ultram)Indications: Pain in limb TAKE 1 TABLET BY MOUTH DAILY NEEDED FOR PAIN, SEVERE. 30 Tablet 01/31/2024 Active Diclofenac Sodium 75 MG Oral Tablet Delayed Release (Voltaren)Indication s:Generalized osteoarthritis TAKE 1 TABLET BY MOUTH IN THE MORNING AND 1 TABLET BEFORE BEDTIME WITH FOOD 180 Tablet 1 01/29/2024 Active metFORMIN HCl 500 MG Oral Tablet (Glucophage)Indicati ons:Prediabetes Take 1 Tablet by mouth 2 times a day with morning and evening meals. 500mg by mouth twice daily 60 Tablet 5 01/31/2024 Active Gabapentin 100 MG Oral Capsule (Neurontin)Indicatio ns:Polyneuropathy in other diseases classified elsewhere (HCC) Take 1 Capsule by mouth at bedtime. 90 Capsule 1 02/29/2024 Active Hospital, Clinic, or Other Facility Administered Medication Ordered Dose Route Frequency Start Date End Date Status albuterol sulfate (PROVENTIL) (2.5 MG/3ML) 0.083% inhalation solution 2.5 mgIndications:Wheezing,SO B (shortness of breath) 2.5 mg NEBULIZER ONCE PRN 12/28/2017 A ctive documented as of this encounter (statuses as of 02/29/2024) Active Problems Problem Noted Date Diagnosed Date [...] to patient at prior appointment. LOC PRIM [id number] 07/20/2003 GENERAL OSTEOARTHROSIS documented as of this encounter (statuses as of 02/29/2024) Resolved Problems Problem Noted Date Diagnosed Date Resolved Date Prediabetes 09/09/2020 11/25/2023 Knee pain, bilateral 02/18/2012 015 HTN, goal below 140/90 01/10/201007/04 Morbid obesity, BMI not known 02/18/2004 08/13/2009 Overview: Per Obesity Taxonomy DISACCHARIDASE DEF-MALAB 02/18/2004 CHONDROMALACIA PATELLAE 01/23/200302/14 Pain in limb 02/28/2015 Edema 12/21/2017 documented as of this encounter (statuses as of 02/29/2024) Immunizations Name Administration Dates Next Due COVID-19 [...] Sign Reading Time Taken Comments Blood Pressure 132/72 02/29/2024 9:00 AM EDT Pulse 71 02/29/2024 9:00 AM EDT Temperature 36.6 C (97.9 F) 02/29/2024 9:00 AM ED T Respiratory Rate 16 02/29/2024 9:00 AM EDT Oxygen Saturation 98% 02/29/2024 9:00 AM EDT Inhaled Oxygen Concentration - - Weight 116.7 kg (257 lb 4 oz) 02/29/2024 9:00 AM EDT Height - - Body Mass Index 44.5 11/19/2023 8:19 AM EDT documented in this encounter Nursing Notes * Keiko Fuller LPN - 02/29/2024 8:56 AM EDT Numbness in fingers and toes. Also has pain in them. People are telling her it is neuropathy. documented in this encounter Plan of Treatment Upcoming Encounters Date Type Department Care Team (Late st Contact Info) Description 03/27/2024 11:00 AM EST Office Visit [facility] Medicine [address] [place] [phone] Sepideh Rodríguez CRNP [address] [place] [address] [place] [address] 08/22/2024 9:00 AM EDT Imaging Radiology [address] [place] [address] 12/04/2024 11:00 AM EDT Office Visit [facility] Medicine [address] [place] [phone] Dorita Erazo MD [address] [place] [address] [place] [address] Scheduled Procedures Name Priority Associated Diagnoses Date/Ti [...] elsewhere documented in this encounter Care Teams Relations Coordinator Relationship Specialty Start Date End Date Dorita Erazo MD [address] [place], [place] [address] [phone] PCP - General Family Medicine 07/07/17 documented as of this encounter
--- OUTSIDE RECORDS SUMMARY | 2024-04-03 11:22 | External Medical Summary | Summary of Care ---
Author Name Unknown Organization [facility] Address [address] [place] [address] Phone [phone] Care Team Providers Care Logistics Operations Manager Name Role Phone Daniel Erazo MD Primary Care Provide r Reason for Visit * Reason Comments eRx-Medication Refill Encounter Details Date Type Department Care Team (Late st Contact Info) Description 03/12/2024 Refill Family Medicine [address] [phone] Daniel Erazo MD [address] [place] [phone] Allergies Active Allergy Reactions Criticality Noted Date Comments No Known Drug Allergy 02/05/2001 documented as of this encounter (statuses as of 03/14/2024) Medications Medication Sig Dispensed Refills Start Date End Date Status ZOVIRAX 5 % EX CREAIndications:He rpes simplex virus infection APPLY TO LIP SORES 5 TIMES A DAY FOR 4 DAYS SOON SYPMPTOMS START 5 g 0 4 Active Loratadine 10 MG Oral Tablet Take 1 Tablet by mouth in the morning. Active Clobetasol Propionate 0.05 % External Ointment (Temovate)Indicati ons:Plaque psoriasis APPLY 2X DAILY (OR MORE IF ITCHY INSTEAD OF SCRATCHING) TO AREAS ON TOPS OF HANDS & ELBOWS (USE PLASTIC WRAP TO THIN OUT SPOTS AT NIGHT) 60 g 2 Active Klor-Con M20 20 MEQ Oral Tablet Extended Release (Potassium Chloride ER)Indications:Hyp opotassemia TAKE 1 TABLET BY MOUTH EVERY DAY 90 Tablet 1 3 Active Albuterol Sulfate HFA 108 (90 Base) MCG/ACT Inhalation Aerosol Solution INHALE 2 PUFFS BY MOUTH EVERY 4 HOURS NEEDED FOR WHEEZING 18 g 5 3 Active Famotidine 40 MG Oral Tablet (Pepcid) TAKE 1 TABLET BY MOUTH EVERY DAY 90 Tablet 3 4 Active Triamterene-HCTZ 37.5-25 MG Oral Capsule (Dyazide)Indicatio ns:Essential hypertension with goal blood pressure less than 140/90 TAKE 1 CAPSULE BY MOUTH EVERY DAY 90 Capsule 3 4 Active Atorvastatin Calcium 20 MG Oral Tablet (Lipitor)Indicatio ns:Dyslipidemia, goal LDL below 130 TAKE 1 TABLET BY MOUTH EVERY DAY 90 Tablet 1 4 Active traMADol HCl 50 MG Oral Tablet (Ultram)Indication s:Pain in limb TAKE 1 TABLET BY MOUTH DAILY NEEDED FOR PAIN, SEVERE. 30 Tablet 4 Active Diclofenac Sodium 75 MG Oral Tablet Delayed Release (Voltaren)Indicati ons:Generalized osteoarthritis TAKE 1 TABLET BY MOUTH IN THE MORNING AND 1 TABLET BEFORE BEDTIME WITH FOOD 180 Tablet 1 4 Active Gabapentin 100 MG Oral Capsule (Neurontin)Indicat ions:Polyneuropath y in other diseases classified elsewhere (HCC) Take 1 Capsule by mouth at bedtime. 90 Capsule 1 4 Active metFORMIN HCl 500 MG Oral Tablet (Glucophage)Indica tions:Prediabetes Take 1 Tablet by mouth 2 times a day with morning and evening meals. 500mg by mouth twice daily 180 Tablet 3 4 Active Furosemide 20 MG Oral Tablet (Lasix) TAKE 1 TABLET BY MOUTH EVERY DAY NEEDED (SWELLING). FOR FLUID ACCUMULATION OR WEIGHT GAIN. 90 Tablet 3 4 Active Furosemide 20 MG Oral Tablet (Lasix) TAKE 1 TABLET BY MOUTH EVERY DAY NEEDED (SWELLING). FOR FLUID ACCUMULATION OR WEIGHT GAIN. 90 Tablet 2 4 03/14/20 24 Discontinued Hospital, Clinic, or Other Facility Administered Medication Ordered Dose Route Frequency Start Date End Date Status albuterol sulfate (PROVENTIL) (2.5 MG/3ML) 0.083% inhalation solution 2.5 mgIndications:Wheezing,SO B (shortness of breath) 2.5 mg NEBULIZER ONCE PRN 12/28/2017 A ctive documented as of this encounter (statuses as of 03/14/2024) Active Problems Problem Noted Date Diagnosed Date [...] to patient at prior appointment. LOC PRIM [id number] 07/20/2003 GENERAL OSTEOARTHROSIS documented as of this encounter (statuses as of 03/14/2024) Resolved Problems Problem Noted Date Diagnosed Date Resolved Date Prediabetes 09/09/2020 11/25/2023 Knee pain, bilateral 02/18/2012 015 HTN, goal below 140/90 01/10/201007/04 Morbid obesity, BMI not known 02/18/2004 08/13/2009 Overview: Per Obesity Taxonomy DISACCHARIDASE DEF-MALAB 02/18/2004 CHONDROMALACIA PATELLAE 01/23/200302/14 Pain in limb 02/28/2015 Edema 12/21/2017 documented as of this encounter (statuses as of 03/14/2024) Immunizations Name Administration Dates Next Due COVID-19 [...] encounter Miscellaneous Notes * Telephone Encounter - Ricardo Deng [facility] - 03/14/2024 9:04 AM EDTSigned Prescriptions: Disp Refills Furosemide 20 MG Oral Tablet (Lasix) 90 Tab*3 Sig: TAKE 1 TABLETBY MOUTH EVERY DAY NEEDED (SWELLING). FOR FLUID ACCUMULATION OR WEIGHT GAIN.Authorizing Provider: DANIEL ERAZO User: RICARDO DENG documented in this encounter Plan of Treatment Upcoming Encounters Date Type Department Care Team (Late st Contact Info) Description 03/27/2024 11:00 AM EST Office Visit Family Medicine [address] [place] [phone] Sepideh Rodríguez [address] [place] [address] 08/22/2024 9:00 AM EDT Imaging Radiology [address] [place] [address] 12/04/2024 11:00 AM EDT Office Visit Family Medicine [address] [place] [phone] Daniel Erazo MD [address] [place] [address] [place] [address] Scheduled Procedures Name Priority Associated Diagnoses Date/Ti [...] filedocumented as of this encounter Care Teams Logistics Operations Manager Relationship Specialty Start Date End Date Daniel Erazo MD [address] [place] [address] [place] [phone] PCP - General Family Medicine 07/07/17 documented as of this encounter
--- OUTSIDE RECORDS SUMMARY | 2024-04-03 11:22 | External Medical Summary | Summary of Care ---
Author Name Unknown Organization [facility] Address [address] [place] [address] Phone [phone] Care Team Providers Care Manager Cancer Name Role Phone Dorita Erazo MD Primary Care Provide r Reason for Visit * Reason Onset Date Comments Medication Refill 03/06/2024 Encounter Details Date Type Department Care Team (Late st Contact Info) Description 03/06/2024 Refill Nutrition & Weight Management, [place] [address] [place] [address] Reynaldo Romo, DO [address] [place], [place] [phone] Prediabetes Allergies Active Allergy Reactions Criticality Noted Date Comments No Known Drug Allergy 02/05/2001 documented as of this encounter (statuses as of 03/07/2024) Medications Medication Sig Dispensed Refills Start Date [...] twice daily 180 Tablet 3 03/07/2024 Active metFORMIN HCl 500 MG Oral Tablet (Glucophage)Indicat ions:Prediabetes Take 1 Tablet by mouth 2 times a day with morning and evening meals. 500mg by mouth twice daily 60 Tablet 5 01/31/2024 03/06/20 24 Discontinu ed(Refill) Hospital, Clinic, or Other Facility Administered Medication Ordered Dose Route Frequency Start Date End Date Status albuterol sulfate (PROVENTIL) (2.5 MG/3ML) 0.083% inhalation solution 2.5 mgIndications:Wheezing,SO B (shortness of breath) 2.5 mg NEBULIZER ONCE PRN 12/28/2017 A ctive documented as of this encounter (statuses as of 03/07/2024) Active Problems Problem Noted Date Diagnosed Date [...] to patient at prior appointment. LOC PRIM [id number] 07/20/2003 GENERAL OSTEOARTHROSIS documented as of this encounter (statuses as of 03/07/2024) Resolved Problems Problem Noted Date Diagnosed Date Resolved Date Prediabetes 09/09/2020 11/25/2023 Knee pain, bilateral 02/18/2012 015 HTN, goal below 140/90 01/10/201007/04 Morbid obesity, BMI not known 02/18/2004 08/13/2009 Overview: Per Obesity Taxonomy DISACCHARIDASE DEF-MALAB 02/18/2004 CHONDROMALACIA PATELLAE 01/23/200302/14 Pain in limb 02/28/2015 Edema 12/21/2017 documented as of this encounter (statuses as of 03/07/2024) Immunizations Name Administration Dates Next Due COVID-19 [...] encounter Miscellaneous Notes * Telephone Encounter - Reynaldo Romo DO - 03/07/2024 11:07 AM EDTSigned Prescriptions: Disp Refills metFORMIN HCl 500 MG Oral Tablet (Glucopha*180 Ta*3 Sig: Take 1 Tablet by mouth 2 times a day with morning and evening meals. 500mg by mouth twice daily Authorizing Provider: REYNALDO ROMO * Telephone Encounter - Cristina Dominique CMA - 03/06/2024 4:55 PM EDT Patient requested a 90-day supply for Metformin. No record for when last seen. Please review. documented in this encounter Plan of Treatment Upcoming Encounters Date Type Department Care Team (Late st Contact Info) Description 03/27/2024 11:00 AM EST Office Visit Family Medicine [address] [place] [phone] Sepideh Rodríguez CRNP [address] [place] [address] [place] [address] 08/22/2024 9:00 AM EDT Imaging Radiology [address] [place] [address] 12/04/2024 11:00 AM EDT Office Visit [address] [place] [phone] Dorita Erazo MD [address] [place] [address] [place] [address] Scheduled Procedures Name Priority Associated Diagnoses Date/Ti [...] as of this encounter Visit Diagnoses Diagnosis Prediabetes Other abnormal glucose documented in this encounter Care Teams Manager Cancer Relationship Specialty Start Date End Date Dorita Erazo MD [address] [facility] [place] [phone] PCP - General Family Medicine 07/07/17 documented as of this encounter
[2024-04-03] MEDS: TRANEXAMIC ACID 1,000 MG **IV Pre-op IV SCH (11:56)
[2024-04-03] MEDS: ceFAZolin 2000MG 2,000 MG/15 ML SYR IV SCH ×2 (12:12→20:44)
[2024-04-03] MEDS ORDERED: KETAMINE HCL 10MG/ML SYR ONE (12:47)
[2024-04-03] MEDS ORDERED: LIDOCAINE 2% 2 ML VIAL/AMP(20MG/ML) INFIL ONE (13:10)
[2024-04-03] MEDS ORDERED: PROPOFOL IV EMULSION 10 MG/ML 20 ML VIAL IV ONE ×2 (13:10→14:40)
[2024-04-03] MEDS: ORTHO JOINT ANESTHETIC ONE (13:11)
[2024-04-03] MEDS: ROPIV 0.5% 246mg, Ketorolac 30mg, EPINEPHrine 0.5mg in NSS INFIL SCH (14:04)
[2024-04-03] MEDS: TRANEXAMIC ACID 1,000 MG **IV Intra-op IV SCH (14:08)
--- NOTE | 2024-04-03 14:30 | Operative Report ---
PG Post Operative Report Pre & Post Diagnosis Operation Date: 04/03/24 11:00 Pre-Op Diagnosis: Osteoarthritis of left knee Post-Op Diagnosis: Osteoarthritis of left knee I identified the patient and participated in the time-out.: Yes Procedure Operation Date: 04/03/24 11:00 Actual Procedures p Left Total Knee Arthroplasty(Left) - Pj Uribe DO Surgeon Pj Uribe DO Pan Dumper None Estimated Blood Loss 30 Findings Consistent with Post-Op Diagnosis Specimens Left femoral tibial bone Description of Procedure Implants used: I used a Jimmy Persona total knee arthroplasty system with a size 9 PRK femur with a 30 mm stem extension, E PRK tibia with a 13 mm x 135 mm stem extension with a 6 mm offset, 34 oval patella, and a size 12 CCK polyethylene bearing. All components were cemented in place with Biomet cement. Nikita arrived [facility] for the above procedure. She was seen in the preoperative holding area and the operative extremity was identified and signed. She was given a preoperative antibiotic, TXA, a spinal anesthetic and an adductor nerve block. She was taken back to the operating room and laid on the table in supine position. She was given basic sedation. The operative knee was then prepped and draped in sterile fashion. A timeout was done, and the patient and the operative extremity was properly identified. A midline incision was made directly over the patella. Dissection was taken down to the extensor mechanism. A medial parapatellar arthrotomy was used. The medial retinaculum was released and the fat pad was mostly excised. The knee was flexed and the ACL, PCL, and meniscus were removed. A drill was sent down the center of the femoral canal followed by an intramedullary keturah. Off that keturah a distal femoral cutting block was placed. 9 mm was resected off the distal femur at 5 of valgus. A posterior referencing AP sizing guide was then placed on the distal femur. The femur measured to be a size 9. 2 drill holes were placed in 3 of external rotation. A 4-in-1 cutting block was then impacted into place. Anterior, posterior, and chamfer cuts were then made. The proximal tibia was then exposed. An intramedullary tibial alignment guide was placed. Sequential reaming up to a size 13 reamer was done. A tibial cut guide was then anchored in place and the proximal tibia was then resected. The posterior aspect of the knee was then opened up and any additional meniscus fragments and osteophytes were removed. The tibia measured to be a size E. The tibial plate was then placed in the appropriate rotation and the tibia was drilled and punched. Trial components were then placed. I used a size 12 CCK polyethylene insert. The knee was brought through a full range of motion and felt to be stable. The peg holes for the femoral component were then drilled. The patella was then everted and 9 mm was resected off the posterior aspect of the patella. The patella measured to be a size 34 oval. 3 peg holes were then drilled. A trial patella was placed. The knee was once again brought through a full range of motion and felt to be stable. Trial components were then removed. The surrounding soft tissues were injected with 100 cc of an orthopedic pain control cocktail. All components were then cemented into place with Biomet cement. The final polyethylene insert was then snapped into place. Once cement was dry the tourniquet was deflated. Hemostasis was obtained. A dilute betadyne lavage was then done for 3 minutes. The joint was then irrigated with normal saline solution. The medial parapatellar arthrotomy was then closed with #1 Vicryl suture. The skin was closed with 2-0 Vicryl, 3-0V lock suture, and pop. A soft compressive dressing was placed. She was then transferred to a hospital bed and taken to the postanesthesia care unit in stable condition. She tolerated the procedure well. I attest to the content of the Intraoperative Record and any orders documented therein. Any exceptions are noted below.
--- NOTE | 2024-04-03 15:22 | XRay Report ---
XR knee LT 1 or 2V routine CLINICAL HISTORY: Surgical Post Op COMPARISON: Left knee radiographs January 11, 2024. FINDINGS: Alignment of the left knee arthroplasty is anatomic. Longstem tibial component is present. There is no periprosthetic fracture or unexpected radiopaque foreign body. There are skin pop. IMPRESSION: Expected findings following left knee arthroplasty. ACT 112: Negative or not required by law. Electronically signed by: Jairo Figueroa M.D. 04/03/2024 3:20 PM
--- NOTE | 2024-04-03 15:43 | Anesthesiology Progress Note ---
Date of Service April 03, 2024 Anesthesia Post Procedure Vital Signs Vital Signs: Temp Pulse Pulse Resp BP Pulse Ox O2 Del Method 04/03/24 15:30 100 H 20 142/80 H 94 Room Air 04/03/24 15:20 104 H 24 144/80 H 92 Room Air 04/03/24 15:15 104 H 22 161/85 H 93 Room Air 04/03/24 15:05 36.4 C L 100 H 23 144/71 H 96 Room Air 04/03/24 14:55 106 H 23 155/79 H 97 Oxymask 04/03/24 14:45 101 H 23 134/66 100 Oxymask 04/03/24 14:35 36.4 C L 108 H 23 114/72 99 Oxymask 04/03/24 09:25 36.9 C 108 H 20 187/85 H 96 Room Air O2 Flow Rate 04/03/24 15:30 0 04/03/24 15:20 0 04/03/24 15:15 0 04/03/24 15:05 0 04/03/24 14:55 4 04/03/24 14:45 8 04/03/24 14:35 8 04/03/24 09:25 Pain Intensity Left Knee: Pain Intensity: 8 Transfer of Care Handoff Completed per policy Notes Mental Status: alert / awake / arousable and participated in evaluation Patient Amnestic to Procedure: Yes Nausea / Vomiting: adequately controlled Pain: adequately controlled Airway Patency, RR, SpO2: stable & adequate BP & HR: stable & adequate Hydration State: stable & adequate Neuraxial Anesthesia: was administered and sensory block is resolving Anesthetic Complications: no major complications apparent and Pt Satisfied with anesthetic care
[2024-04-03] MEDS ORDERED: bisacodyL 10 MG SUPP PR PRN (16:05)
[2024-04-03] MEDS ORDERED: NALOXONE HCL 0.4 MG/1 ML VIAL/CARP IV PRN (16:05)
[2024-04-03] MEDS ORDERED: HYDROmorphone INJ 0.5 MG/0.5 ML SYR IV PRN (16:05)
[2024-04-03] MEDS ORDERED: LORATADINE 10 MG TAB PO PRN (16:05)
[2024-04-03] MEDS ORDERED: FUROSEMIDE 20 MG TAB PO PRN (16:05)
[2024-04-03] MEDS ORDERED: CLOBETASOL PROPIONATE 0.05% CREAM 15 GM TUBE TOP PRN (16:05)
[2024-04-03] MEDS ORDERED: METOCLOPRAMIDE HCL INJ 5 MG/ML 2 ML VIAL IV PRN (16:05)
[2024-04-03] MEDS ORDERED: traMADol HCL 50 MG TABLET PO PRN (16:05)
[2024-04-03] MEDS ORDERED: ALBUTEROL HFA 8 GM INHALER INH PRN (16:05)
[2024-04-03] MEDS ORDERED: MAGNESIUM HYDROXIDE SUSP 30 ML UDC PO PRN (16:05)
[2024-04-03] MEDS: KETOROLAC TROMETHAMINE 15 MG/ML VIAL IV SCH (16:42)
[2024-04-03] MEDS: metFORMIN HCL 500 MG TAB PO SCH (17:41)
[2024-04-03] MEDS: FAMOTIDINE 40 MG TABLET PO SCH (20:45)
[2024-04-03] MEDS: ASPIRIN 81 MG ECTAB PO SCH (20:45)
[2024-04-03] MEDS: GABAPENTIN 100 MG CAP PO SCH (20:45)
[2024-04-03] MEDS: ATORVASTATIN 20 MG TAB PO SCH (20:45)
[2024-04-03] MEDS: DOCUSATE SODIUM 100 MG CAP PO SCH (20:47)
[2024-04-03] MEDS: SENNA 8.6 MG TAB PO SCH (20:47)
[2024-04-03] MEDS ORDERED: DICLOFENAC SODIUM 75 MG TABCR PO SCH (21:00)
[2024-04-03 22:58] VITALS: TEMP 98.2
[2024-04-04] MEDS: oxyCODONE HCL IR 5 MG TAB (IMMEDIATE RELEASE) PO PRN (03:28)
--- NOTE | 2024-04-04 05:53 | Orthopedic Progress Note ---
Date of Service April 04, 2024 Assessment & Plan (1) Status post left knee replacement: Overall she is doing very well. She is not having much pain in the left knee. She will be seen by physical therapy today for ambulation and range of motion exercises. She is on aspirin for DVT prophylaxis. The nursing staff can change her dressing after physical therapy. She can be discharged to home later today. She will follow-up orthopedics in 2 weeks. Helena Shelton was seen and examined at bedside this morning. Overall she is doing very well. She is not having much pain in the left knee. She has been up and ambulating to the bathroom. She has no complaints.. Review of Systems All systems reviewed & are unremarkable except as noted in HPI & below. Physical Exam On physical exam of the left knee, the dressing is clean and dry. Her leg is out full extension. She has active dorsiflexion plantarflexion of her left ankle.. Results & Data Results & Data Laboratory Results . Diagnostic Findings Postoperative x-rays of the left knee show the prosthesis to be in anatomic alignment without any evidence of fracture, dislocation, or loosening.. PG Care Time/CCT Total # of Minutes Spent Total Time Spent with Patient: Total time spent is greater than 50% in coordination of care (as documented) at patient's floor/unit and/or counseling patient: Coding Level of Care Code 06829 Post Operative Follow-Up Diagnoses Status post left knee replacement Z96.652
--- NOTE | 2024-04-04 05:54 | Discharge Summary ---
Date of Service April 04, 2024 Admission HPI (Per Admitting) Nikita is a [id number] female who I did a right partial knee replacement on about 10 years ago. She has done well with that. Unfortunately, she isdealing with severe left knee pain. Her left knee has completely collapsed into varus. It hasbeen bothering her for the last four years. She was not able to get much treatment during COVID. It isto the point now where she wants to be a little bit more active. She isvery limited with her left knee. After failing conservative treatment, she has elected proceed with a left total knee arthroplasty. Admission Exam (Per Admitting) On physical exam of the left knee, she has a severe varus deformity. She has tenderness palpation of the distal medial femoral condyles and over the medial joint lines.. Principal Diagnosis Same as "Discharge Diagnosis" noted below under Discharge Instructions. Discharge Exam On physical exam of the left knee, the dressing is clean and dry. Her leg is out full extension. She has active dorsiflexion plantarflexion of her left ankle.. Discharge Data Procedures Performed Operation Date: 04/03/24 11:00 Actual Procedures p Left Total Knee Arthroplasty(Left) - Pj Uribe DO Ordered Studies 04/03/24 05:00 US - OR guided needle placemen Routine Hospital Course (1) Status post left knee replacement: On April 03, 2024 Nikita arrived at [facility] and underwent a left knee replacement without complication. She had a spinal anesthetic. Post operatively she was started on aspirin for DVT prophylaxis and transferred to the general orthopedic floors. Her hospital course was uneventful. On postop day #1, her vital signs were stable and her pain was well-controlled. She was able to participate well with physical therapy doing ambulation and range of motion exercises. She was then discharged home. She will follow-up with orthopedics in 2 weeks. PG Care Time/CCT Total # of Minutes Spent Total Time Spent with Patient: Total time spent is greater than 50% in coordination of care (as documented) at patient's floor/unit and/or counseling patient: Discharge Plan Discharge Items Patient Disposition: Home - Self-Care Reason For Visit: Left Knee Degenerative Joint Disease Discharge Diagnosis: Left knee replacement Activity: Per Instructions section Non-emergency contact: Surgeon Call non-emergency contact if: your wound has increased redness and your wound has increased drainage Follow-up/Referrals: Dorita Erazo MD [Primary Care Provider] - Diet: Regular Addtl Attending Provider Instructions: Activity and Therapy Recommendations: * If you are using [facility] then therapy will be provided at your home until they feel you have accomplished all of your goals. * If you are using [facility] then Physical Therapy will be provided until they feel you are ready to start Outpatient Physical Therapy. * If you are not using home therapy then Outpatient Physical Therapy should start about 3-5 days from your day of surgery. Therapy will last about 6-10 weeks * It is important not to put a pillow under your knee when you are relaxing or sleeping. It is just as important to make sure you are getting your knee perfectly straight as it is to regain your knee bend. * You were shown a series of exercises in the hospital. Do these exercises three times each day including the exercises you were shown in physical therapy. * Get up and walk several times each day. For the first four weeks, try not to stand or walk for more than one hour at a time. If you do stand or walk for more than one hour, you will not hurt anything, but your leg will likely swell. * As you feel comfortable, you may change from the walker or crutches to a cane and then to independent walking. Medications: * Narcotic You will likely be sent home from the hospital with a prescription for the narcotic pain medication that worked best throughout your stay. * Cefadroxil -take the antibiotic twice a day for 10 days to help prevent infection. * Aspirin Most patients will be required to take Aspirin 81mg twice a day for 6 weeks after surgery. This is obtained [id number] and a prescription is not necessary. * Other medications may be prescribed for specific circumstances. If you have any questions, please call the office at . * Resume previous home medications unless otherwise instructed TEDs/Elastic Stockings: The white elastic stockings help limit swelling and prevent blood clots from forming in your legs.~ The more you wear them, the more they work. Wear them for six weeks. Dressing Care: The dressing can be changed after physical therapy on postop day #1. Daily dry dressing changes for a few days, especially if the incision is still draining some. If the incision is not draining then you may leave the pop open to air. If there is a little bit of drainage or if the pop are getting stuck on your clothing then cover the incision with a dry dressing. The pop will be removed at your 2 week follow-up appointment. Showering: You may shower 5 days from the day of surgery as long as the incision is no longer draining. You may shower with the pop exposed. Let soapy water run over the pop and pat them dry. Do not scrub or soak the incision. Diet: You may resume your previous diet. Things To Watch For: * Drainage from the incision site that occurs more than one week after your surgery. * Increased redness at the incision site. * Fever above 102 degrees Fahrenheit. * Unusual chest pain or shortness of breath. * Call [facility] at with any of the above problems Follow-Up Visit: Follow-up with Dr. Uribe's PA (Pj Bryan) 2-3 weeks after your day of floyd rgery. He will remove your pop and answer any questions. If you have any additional questions or concerns, Dr Uribe is usually in the office at the same time and will be available An appointment was probably scheduled when you signed-up for surgery in the office. If you have any questions call Office Instructions: More detailed instructions as well as Frequently Asked Questions were provided in a folder by our office when you signed-up for surgery. Please review these instructions when you get home. If you have any further questions or concerns, please feel free to call the office at [phone] Pending Studies at Discharge: No Stand-Alone Forms: My [facility], Smoking Cessation Medications and DC Order Prescriptions: New oxycodone 5 mg Tablet 5 mg PO Q4H PRN (Reason: pain) Qty: 30 0RF cefadroxil 500 mg capsule 500 mg PO BID 10 Days Qty: 20 0RF aspirin 81 mg Tablet,Delayed Release (Dr/Ec) 81 mg PO BID 42 Days Qty: 84 0RF Continued metformin 500 mg Tablet 500 mg PO BID atorvastatin [Lipitor] 20 mg Tablet 20 mg PO QPM famotidine 40 mg Tablet 40 mg PO QPM clobetasol 0.05 % Cream 1 applic TOPICAL UD PRN (Reason: PSORIASIS) tramadol 50 mg Tablet 50 mg PO UD PRN (Reason: Pain) potassium chloride [Klor-Con M20] 20 mEq Tablet,Er Particles/Crystals 20 meq PO QAM triamterene-hydrochlorothiazid 37.5-25 mg Tablet 1 tab PO QAM diclofenac sodium 75 mg Tablet,Delayed Release (Dr/Ec) 75 mg PO BID furosemide 20 mg Tablet 20 mg PO UD PRN (Reason: LEG SWELLING) albuterol sulfate 90 mcg/actuation Hfa Aerosol Inhaler 1 inh INHALATION UD PRN (Reason: ALLERGIES) loratadine [Claritin] 10 mg Tablet 10 mg PO UD PRN (Reason: ALLERGIES) Patient Comments: IN SUMMER TAKE ALLERGY PILL / OFF BRAND CLARITIN OR ZYRTEC cyanocobalamin (vitamin B-12) [Vitamin B-12] 1,000 mcg Tablet 1,000 mcg PO QAM gabapentin 100 mg Capsule 100 mg PO TID Discharge Orders: Discharge Order (Routine); Ordered 04/04/24 Ordered By: Pj Uribe Admission Data Admit Date/Time: 04/03/24 14:35 Attending Provider: Pj Uribe Admit Provider: Pj Uribe Primary Care Provider: Dorita Erazo
[2024-04-04 07:24] VITALS: BP 124/75; PULSE 76; RESP 16; O2SAT 93
[2024-04-04] MEDS: MULTIVITAMIN TAB PO SCH (08:21)
[2024-04-04] MEDS: POTASSIUM CHLORIDE CRTAB 20 MEQ TABCR PO SCH (08:22)
[2024-04-04] MEDS: TRIAMTERENE/HCTZ 37.5/25MG TAB PO SCH (08:22)
[2024-04-04] MEDS: CYANOCOBALAMIN (B-12) 500 MCG TABLET PO SCH (08:24)
== END 2024-04-04 11:21 | disposition home or self-care (01) ==
LOC: ASU 08:54 → 3E 08:54